=== PATIENT | female | born 1965 | race Caucasian/White ===

== ENCOUNTER 2018-07-08 12:28 | Emergency (ER) | payer BC, OTHER ==
--- OUTSIDE RECORDS SUMMARY | 2018-07-08 12:58 | XMS REPORT | Continuity of Care Document ---
:1965 External Reference #:[id number] Author Name Catracho Marino M.D. Address [address] [place] [address] Care Team Providers Name Role Phone Juice Cheng M.D. Primary Care Physician Unavailable Payers Type Date Identification Numbers Payment Provider Subscriber Policy Number: [id number] CTC Benefits Gill [employer] Number: [id number] [facility] PayID: [id number] [address] [address] Advance Directives Description No Information Available Problems Date Description Provider Status Onset: 07/08/2018 Transient visual loss Catracho Marino M.D. 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 ETOH Use Denies alcohol use Tobacco Use Start: Unknown Patient has never smoked Recreational Drug Use Denies Drug Use Smoking Status Reviewed: 07/08/18 Patient has never smoked Allergies, Adverse Reactions, Alerts Description No Known Drug Allergies Medications Description No Active Medications Immunizations Description No Information Available Vital Signs Description No Information Available Results Description No Information Available Procedures Description No Information Available Encounters Description No Information Available Plan of Treatment 07/08/2018 - Catracho Marino M.D.H53.121 Transient visual loss, right eyeComments:Smoking can increase the risk of developing or worsening any eye related disease, as well as affect your overall health. If you are a smoker, we strongly recommend that you quit.If you are not a smoker, we strongly recommend that you do not start.
[2018-07-08 13:39] LABS: ABS Basophils 0.1 10^3/ul (0-0.2); ABS Eosinophils 0.2 10^3/ul (0-0.6); ABS Lymphocytes 3.6 10^3/ul (1.0-4.8); ABS Monocytes 0.6 10^3/ul (0-0.8); ABS Nucleated RBC 0 10^3/ul; Eosinophil % 2.5 % (0-6); Hematocrit 44 % (35-47); Hemoglobin 15.3 g/dl (12.0-16.0); Lymphocyte % 42.2 % (25-47); Mean Corpuscular HGB Conc 35 g/dl (31-36); Mean Corpuscular Hemoglobin 33 pg (27-31); Mean Corpuscular Volume 94 fL (80-97); Mean Platelet Volume 7.6 fL (7.4-10.4); Nucleated Red Blood Cells % 0.1; Platelet Count 303 10^3/ul (150-450); Red Blood Count 4.71 10^6/ul (4.00-5.40); Red Cell Distribution Width 13 % (10.5-15); White Blood Count 8.6 10^3/ul (3.5-10.8)
[2018-07-08 13:52] LABS: INR 0.94 (0.77-1.02)
--- NOTE | 2018-07-08 13:54 | ED ---
Throat Pain/Nasal Congestion - HPI Summary HPI Summary: A 53 y/o female presents to the ED c/o right eye pain since the night of 2017 while watching television. She was seen by Dr. Marino at 11:[address] Marino referred the patient to the ED and wanted a brain MRI done. Dr. Marino is concerned for an ocular migraine. She states that the night of 06/2018 she had sharp pain in her right eye and double vision lasting 3-5 minutes. At 05:55 07/08/2018, 10 minutes after waking up, she had a similar episode. She had a third episode in the car driving to her appointment. She claims that during these episodes she is nauseous but she denies nausea currently. She states that she currently has a COTTON in which her "whole head hurts ". She rates her pain currently as a 2/10. She denies a Hx of migraines. - History of Current Complaint Chief Complaint: EDEyeProblem Time Seen by Provider: 07/08/18 12:52 Hx Obtained From: Patient Onset/Duration: Sudden Onset, Lasting Hours Severity: Moderate - Allergies/Home Medications Allergies/Adverse Reactions: Allergies Allergy/AdvReac Type Severity Reaction Status Date / Time No Known Allergies Allergy Verified 07/08/18 12:36 Home Medications: Home Medications NK [No Home Medications Reported] 07/08/18 [History Confirmed 07/08/18] PMH/Surg Hx/FS Hx/Imm Hx Endocrine/Hematology History: Denies: Hx Diabetes, Hx Thyroid Disease Cardiovascular History: Denies: Hx Hypertension Respiratory History: Denies: Hx Asthma, Hx Chronic Obstructive Pulmonary Disease (COPD) GI History: Denies: Hx Ulcer Infectious Disease History: No Infectious Disease History: Denies: Hx Clostridium Difficile, Hx Hepatitis, Hx Human Immunodeficiency Virus (HIV), Hx of Known/Suspected MRSA, Hx Shingles, Hx Tuberculosis, Hx Known/ Suspected VRE, Hx Known/Suspected VRSA, History Other Infectious Disease, Traveled Outside the [place] in Last 30 Days - Family History Known Family History: Negative: Cardiac Disease, Hypertension, Diabetes - Social History Alcohol Use: Rare Substance Use Type: Reports: None Smoking Status (MU): Former Smoker Type: Cigarettes Length of Time of Smoking/Using Tobacco: 20+ years Have You Smoked in the Last Year: No Review of Systems Eyes: Other - Positive: eye pain, double vision Negative: Nausea - not currently, but presents at times of episodes. Neurological: Negative - migraine Positive: Headache All Other Systems Reviewed And Are Negative: Yes Physical Exam - Summary Physical Exam Summary: Appearance: The patient is well-nourished in no acute distress and in no acute pain. Skin: The skin is warm and dry and skin color reflects adequate perfusion. HEENT: The head is normocephalic and atraumatic. The pupils are equal and reactive. The conjunctivae are clear and without drainage. Nares are patent and without drainage. Mouth reveals moist mucous membranes and the throat is without erythema and exudate. The external ears are intact. The ear canals are patent and without drainage. The tympanic membranes are intact. No tenderness or bruise in neck. Neck: The neck is supple with full range of motion and non-tender. There are no carotid bruits. There is no neck vein distension. Respiratory: Chest is non-tender. Lungs are clear to auscultation and breath sounds are symmetrical and equal. Cardiovascular: Heart is regular rate and rhythm. There is no murmur or rub auscultated. There is no peripheral edema and pulses are symmetrical and equal. No bruise, no thrills. Abdomen: The abdomen is soft and non-tender. There are normal bowel sounds heard in all four quadrants and there is no organomegaly palpated. Musculoskeletal: There is no back tenderness noted. Extremities are non-tender with full range of motion. There is good capillary refill. There is no peripheral edema or calf tenderness elicited. Neurological: Patient is alert and oriented to person, place and time. The patient has symmetrical motor strength in all four extremities. Cranial nerves are grossly intact. Deep tendon reflexes are symmetrical and equal in all four extremities. Psychiatric: The patient has an appropriate affect and does not exhibit any anxiety or depression. Triage Information Reviewed: Yes Vital Signs On Initial Exam: Initial Vitals Temp Pulse Resp BP Pulse Ox 97.5 F 57 16 151/97 100 07/08/18 12:34 18 12:34 18 12:34 07/08/18 12:34 07/08/18 12:34 Vital Signs Reviewed: Yes Diagnostics - Vital Signs Vital Signs Temp Pulse Resp BP Pulse Ox 07/08/18 12:34 97.5 F 57 16 151/97 100 - Laboratory Lab Results: Lab Results 07/08/18 Range/Units 13:27 WBC 8.6 (3.5-10.8) 10^3/ul RBC 4.71 (4.00-5.40) 10^6/ul Hgb 15.3 (12.0-16.0) g/dl Hct 44 (35-47) % MCV 94 (80-97) fL MCH 33 H (27-31) pg MCHC 35 (31-36) g/dl RDW 13 (10.5-15) % Plt Count 303 (150-450) 10^3/ul MPV 7.6 (7.4-10.4) fL Neut % (Auto) 46.9 (38-83) % Lymph % (Auto) 42.2 (25-47) % Glasscock % (Auto) 7.3 H (0-7) % Eos % (Auto) 2.5 (0-6) % Baso % (Auto) 1.1 (0-2) % Absolute Neuts (auto) 4.0 (1.5-7.7) 10^3/ul Absolute Lymphs (auto) 3.6 (1.0-4.8) 10^3/ul Absolute Monos (auto) 0.6 (0-0.8) 10^3/ul Absolute Eos (auto) 0.2 (0-0.6) 10^3/ul Absolute Basos (auto) 0.1 (0-0.2) 10^3/ul Absolute Nucleated RBC 0 10^3/ul Nucleated RBC % 0.1 Result Diagrams: 07/08/18 13:27 07/08/18 13:27 Lab Statement: Any lab studies that have been ordered have been reviewed, and results considered in the medical decision making process. - EKG 13:41 Cardiac Rate: Bradycardia - 55 bpm EKG Rhythm: Sinus Bradycardia Summary of EKG Findings: normal ST, no ectopy, no STEMI Re-Evaluation - Re-Evaluation First Eval Re-Evaluation Time: 13:05 Change: Unchanged - no: tenderness in neck, bruis, thrills, heart murmur. Comment: no tenderness or bruise in neck. No thrills or heart murmur. Second Eval Re-Evaluation Time: 16:10 Change: Unchanged Comment: Discussed with patient about seeing Dr. Caldwell in the ED. EENT Course/Dx - Course Course Of Treatment: Ms. Neal presented to the emergency department from Dr. Marino's office. She has had 3 episodes in the last 12 hours or so of seeing sparkling lights and floaters in her right eye accompanied by nausea. These episodes generally have resolved on their own after a few minutes. The latest episode left her with a headache which is global, not pounding and not associated with nausea. She does have a little bit of photophobia as she went to Dr. Marino's office and her eyes were dilated. He told her that this was not an IV problem and recommended she get an MRI scan. My physical exam was unremarkable and I contacted Dr. Caldwell for neurology. He came to the department and evaluated her and felt that she did not need an MRI scan, that these were ocular migraines. At that time she was completely asymptomatic and discharged. - Diagnoses Provider Diagnoses: Ocular migraine - Provider Notifications Discussed Care Of Patient With: Kate Caldwell Time Discussed With Above Provider: 13:10 Instructed by Provider To: MD Will See In ED - Dr. Caldwell states that he will see the patient in the ED and recommends TIA workup. At 18:25 Dr. Caldwell gave the pt a dx of ocular migraine and told her to follow up with Dr. Ponce in 3 weeks. Discharge - Sign-Out/Discharge Documenting (check all that apply): Patient Departure - DC - Discharge Plan Condition: Stable Disposition: HOME Patient Education Materials: Ocular Migraine (ED) Referrals: Juice Cheng MD [Primary Care Provider] - (2-3 days) Jeffery Ponce MD [Medical Doctor] - (3 weeks) Additional Instructions: Follow up with Dr. Ponce in 3 weeks. Return to the ED if you experience new or worsening symptoms. - Billing Disposition and Condition Condition: STABLE Disposition: Home - Attestation Statements Document Initiated by Rula: Yes Documenting Scribe: Tyron Morrison Provider For Whom Rula is Documenting (Include Credential): Spenser Adan MD Scribe Attestation: Tyron Bentley scribed for Spenser Adan MD on 07/08/18 at 2048. Scribe Documentation Reviewed: Yes Provider Attestation: The documentation as recorded by the Tyron hurley accurately reflects the service I personally performed and the decisions made by me, Spenser Adan MD
[2018-07-08 13:59] LABS: EGFR Non-African American 85.8 (>60)
[2018-07-08 14:45] LABS: Urine Appearance Clear; Urine Blood 1+ (Negative); Urine Color Yellow; Urine Ketones Negative (Negative); Urine Protein Negative (Negative); Urine Red Blood Cell Trace(0-2/hpf) (Absent); Urine Specific Gravity 1.012 (1.010-1.030); Urine Urobilinogen Negative (Negative); Urine White Blood Cell Trace(0-5/hpf) (Absent)
[2018-07-08 18:53] VITALS: BP 121/70
--- NOTE | 2018-07-08 21:29 | CONS ---
CC: Dr. Cheng; Dr. Caldwell; Dr. Marino * CONSULTATION REPORT: DATE OF CONSULT: 07/08/18 TIME OF EVALUATION: 5:05 p.m. PRIMARY CARE PROVIDER: Dr. Cheng. CONSULTING NEUROLOGIST: Dr. Caldwell. MULTIMEDIA AUTHORING SPECIALIST: Dr. Marino. REQUESTING PHYSICIAN: Dr. Spenser Adan REASON FOR CONSULTATION: Evaluation for admission. HISTORY OF PRESENT ILLNESS: Mrs. Neal is a 53-year-old overweight female who denies any significant past medical history who was referred to the emergency room by Dr. Marion due to visual changes. The patient states she was in her usual state of health last night when around 10, she started to have pain behind her right eye that was followed by double vision and then seeing right visual scotomas. She states the whole episode lasted around 5 minutes and she went to bed. This morning, around 6 in the morning, she had a similar episode as the same pain behind her right eye, double vision followed by bright spots in her visual field, so she talked to a friend that works at Dr. Marino's office and they made arrangement for an appointment this morning. Around 10 this morning while going to her appointment , she had another episode of pain, double vision, and bright visual spots in her visual field and after evaluation by Dr. Marino, she was sent to the emergency room for an MRI. As per discussion with the emergency room provider, Dr. Marino was concerned with ocular migraine. The emergency room provider discussed the case with Neurology on-call (Dr. Caldwell) and he was concerned with the possibility of a TIA and actually recommended admission for further workup. At the time of my interview, the patient states that she is feeling much better. She denies headaches, nausea, vomiting. Her pupils are still dilated, so she still has some visual difficulties, but no more diplopia or visual scotomas. She denies any prior episodes like this. She denies chest pain, palpitation, shortness of breath, diarrhea, urinary complaints. She had some nausea during the periods of diplopia, but this is also resolved. She had some photophobia after her eye exam as her pupils were dilated, but before that, she did not experience any photophobia. PAST MEDICAL HISTORY: None. MEDICATIONS: None. ALLERGIES: None. SOCIAL HISTORY: The patient was a smoker from age 15 to age 51, maximum 1 pack per day. She denies any history of alcohol or drug use. 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 Surrogate decision maker is her , Stefan Neal, phone number is [phone]. REVIEW OF SYSTEMS: A 14-point review of systems was performed and all the pertinent negative and positive findings are in the HPI. PHYSICAL EXAM: Vital Signs: Temperature 97.5, heart rate is 67, respiratory rate is 15, oxygen saturation 96% on room air, blood pressure is 115/68. General: The patient is a pleasant middle-aged lady, sitting up in the ED stretcher, in no acute distress. HEENT: Pupils are equal and dilated at this time. Cranial nerves II through XII are grossly intact. Face is symmetric. Moist mucous membranes. CVS: Normal S1, S2. Regular rate and rhythm. Chest: Breath sounds present bilaterally with no added sounds. Abdomen is obese. Bowel sounds present. Extremities: No edema. Neuro: She is alert and oriented x3. Face is symmetric. Speech is clear. Sensation is intact. Finger- to-nose is normal. Power is 5/5 in all 4 extremities. LABORATORY AND IMAGING DATA: The patient had a CBC that showed a WBC of 8.6, hemoglobin of 15.3, hematocrit of 44, platelets of 303. INR of 0.94. Chemistry showed a sodium of 140, potassium of 3.9, chloride of 105, bicarb 27, BUN of 8, creatinine of 0.7, glucose of 96. Lactic acid of 0.9. Calcium is 9.5. LFTs are normal. Triglycerides of 201, total cholesterol is 181, LDL is 88, HDL is 52.5, and TSH is 1.99. Urinalysis showed 1+ blood, positive nitrites, and squamous epithelial cells. EKG done at 1341 today shows sinus bradycardia at 55 beats per minute with no ST -T changes. There is no prior EKG to compare. ASSESSMENT AND PLAN: Mrs. Neal is a 53-year-old overweight female with no significant past medical history who presented to the emergency room after 3 episodes of right eye pain followed by diplopia and visual scotomas, 3 episodes over the last 24 hours. Neurology had recommended admission for transient ischemic attack workup. The patient is already scheduled to have MRI/MRA of the brain/head and neck tonight and the plan was for admission as observation to telemetry floor to monitor her rhythm and also to have an echocardiogram with bubble study in the morning as Neurology is concerned with the possibility of an transient ischemic attack. I did explain to the patient that we are concerned that her clinical presentation may be secondary to migraines, but the major concern at this point is that she could have "mini strokes" (transient ischemic attack). We are especially concerned with the fact that she has had 3 episodes over the past 24 hours and the idea would be to have her admitted to expedite her workup. Her ABCD2 score is 1 (blood pressure greater than 140/90 on arrival to the ED) and it is not clear that she would be able to get her diagnostic workup completed within 2 days as an outpatient, but the patient is adamant that she will not stay for admission. Her plan is to have the MRI tonight and follow up with Dr. Marino and her primary care provider as outpatient. The patient understands that she is at risk for further events and if these are vascular events, she may have permanent deficits, disability or even risk of depending on the magnitude of the event. The patient verbalized understanding of the risks, but states that she was never admitted before and she would prefer not to stay in the hospital. I spoke with the emergency room provider (Dr. Adan) and he will continue to care for the patient. If the patient changes her mind and decides to stay in the hospital for further evaluation, please do not hesitate to contact the hospitalist service as we will be available to admit her. TIME SPENT: Approximately 45 minutes was spent with patient and interview, medical records review, physical examination to complete the consultation, more than half the time was spent [id number] with the patient and coordination of care. [id number]/[facility] #: [id number] SHWETHA
--- NOTE | 2018-07-08 22:17 | CONS ---
CONSULTATION NOTE: DATE OF CONSULT: 07/08/18 - EMERGENCY DEPT CONSULTING PROVIDER: Spenser Adan MD REASON FOR CONSULT: Floaters in the right eye, intermittent right eye pain. HISTORY OF PRESENT ILLNESS: Mrs. Gill Neal is a 53-year-old right- handed female who had 3 episodes of gradual onset right retro-orbital dull pain that lasted 2-3 minutes. The patient had the first symptoms last night after watching TV for about 3 hours. The symptoms' onset was around 11 p.m. She noticed that she has this retro-orbital pain in the right eye associated with double vision that is horizontal that resolved after 2 minutes. After the resolution, she noticed slight headache with floaters that are coming to her from different direction. This also lasted for 1 to 2 minutes. The symptoms came back again at 5:30, lasted about 10 minutes and then again at 11 a.m., which also lasted for about 5 minutes. She went to see Dr. Marino, the expediter, who diagnosed her with transient visual loss and sent her to the ED for an MRI of the brain. When I discussed this with the patient, the patient denied any visual loss. She stopped smoking 2-1/2 years ago. She is a 20-pack per year smoker prior to that. The patient does have history of headaches. She has approximately 2-3 headaches a month. She never allows the headache to debilitate her and she is able to function with these headaches. However, she had multiple occasions where she needs an ibuprofen to take the edge off. She does have occasional photo or phonophobia and rarely nausea with the headaches. She was never diagnosed with migraine headaches. PAST MEDICAL HISTORY: She denied any history of hypertension, diabetes, or dyslipidemia. PAST SURGICAL HISTORY: She has never had any surgeries. MEDICATIONS: She is not on any medication. ALLERGIES: She is not allergic to any medication. FAMILY HISTORY: She has family history of migraines. Her brother developed severe headaches. 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 She denied any alcohol use. She is . REVIEW OF SYSTEMS: A 14-point review of systems was obtained and otherwise negative except for what was mentioned in the HPI. PHYSICAL EXAM: Vitals: Temperature 97.5, heart rate is 57, respiratory rate is 15, oxygen saturation 96%, blood pressure is 115/68. General: Well nourished, well developed female in no acute distress. She is resting comfortably. Head is normocephalic and atraumatic. Eyes: Conjunctivae/ corneas are clear. She has recently had a dilated funduscopic examination and her pupils are dilated and fixed. Neck is supple and symmetrical with no carotid bruits. Lungs are clear to auscultation bilaterally. Cardiovascular: Regular rate and rhythm with normal S1, S2. Extremities: Normal range of motion with no cyanosis. Skin: No skin lesions or laceration. Psych: Affect is broad and normal mood. Neurological Examination: Mental status, she is awake , alert, oriented to person, place, time, and general circumstance. Speech and language include expression, naming, repetition, and comprehension were assessed and found to be normal. Cranial nerve testing: Normal confrontation bilaterally. The pupils are dilated due to recent dilated funduscopic examination. She has normal disk margins. Normal venous pulsation. Sensation is intact in the forehead. No facial asymmetry. She is able to hear throughout the history process. Symmetrical palatal elevation. Normal strength against shoulder shrug resistance. Tongue is symmetrical and midline with no atrophy or fasciculation. Motor: No abnormal movements or pronator drift. Motor strength is 5/5 in the upper and lower extremities bilaterally. Reflexes: 2+ at the brachioradialis, biceps, triceps, patella, ankle bilaterally. Plantar flexor/flexor. Sensation is intact to light touch and pinprick throughout. Coordination: Normal [id number] and rapid alternating movement. Gait and station: Narrow-based, normal stance. Negative Romberg sign. Important to note that the patient's ABCD2 score is 0. LABORATORY DATA: WBC 8.6, hemoglobin 15.3, hematocrit is 44, platelet count 303. INR 0.94. TSH 1.99, HDL 52, LDL 88, cholesterol 181. Urinalysis is negative for pyuria. ASSESSMENT AND RECOMMENDATION: Mrs. Gill Neal is a 53-year-old fairly healthy female who had 3 episodes of right retro-orbital pain associated with floaters and headaches. The pain has resolved. Symptoms were very transient lasting for less than 10 minutes. She does have history of headaches. She has a family history of migraines. She denied any visual loss. Overall I suspect this presentation is related to ocular migraine or migraine phenomenon. She has no evidence of focal neurological deficits on examination. ABCD2 score is 0 thus I do not suspect that she has a transient ischemic attack. The patient is refusing to have a contrasted MRI. I informed her that a noncontrasted MRI will not evaluate for demyelinating disease and I do not think she needs a workup for vascular pathology. She agreed and would prefer to follow up with a neurologist as an outpatient. I will set her up with Dr. Ponce in 3-4 weeks. If her symptoms resolve and she does not have any recurrence of her symptoms, then she does not need any further evaluation. If she has more than 3-4 headaches a month, I recommend she should take daily magnesium oxide 400 mg daily. I encouraged her to use blue light blocking glasses whenever she is using her phone at nighttime. TIME SPENT: I spent a total of 60 minutes and greater than 50% was spent directly reviewing the medical chart, obtaining history, examining the patient, education and counseling, and discussing the treatment plan as mentioned above. The patient verbalized understanding and agrees with the plan. She prefers not to stay in the ER to wait for the MRI especially if it is not needed at this point. She will be discharged to home. [id number]/[facility] #: [id number] SHWETHA
--- NOTE | 2018-07-10 18:30 | ED ---
Progress - Progress Note Progress Note: Patient's preliminary urine culture reveals greater than 100,000 Escherichia coli. Patient was not discharged with antibiotics this day however she was seen subsequently for 2 additional ED visits and admitted to the hospital. She was discharged with Augmentin. Final results pending. Re-Evaluation - Re-Evaluation First Eval Re-Evaluation Time: 13:05 Change: Unchanged - no: tenderness in neck, bruis, thrills, heart murmur. Comment: no tenderness or bruise in neck. No thrills or heart murmur. Second Eval Re-Evaluation Time: 16:10 Change: Unchanged Comment: Discussed with patient about seeing Dr. Caldwell in the ED. Course/Dx - Course Course Of Treatment: Ms. Neal presented to the emergency department from Dr. Marino's office. She has had 3 episodes in the last 12 hours or so of seeing sparkling lights and floaters in her right eye accompanied by nausea. These episodes generally have resolved on their own after a few minutes. The latest episode left her with a headache which is global, not pounding and not associated with nausea. She does have a little bit of photophobia as she went to Dr. Marino's office and her eyes were dilated. He told her that this was not an IV problem and recommended she get an MRI scan. My physical exam was unremarkable and I contacted Dr. Caldwell for neurology. He came to the department and evaluated her and felt that she did not need an MRI scan, that these were ocular migraines. At that time she was completely asymptomatic and discharged. - Diagnoses Provider Diagnoses: Ocular migraine - Provider Notifications Time Discussed With Above Provider: 13:10 Instructed by Provider To: MD Will See In ED - Dr. Caldwell states that he will see the patient in the ED and recommends TIA workup. At 18:25 Dr. Caldwell gave the pt a dx of ocular migraine and told her to follow up with Dr. Ponce in 3 weeks. Discharge - Sign-Out/Discharge Documenting (check all that apply): Post-Discharge Follow Up - Discharge Plan Condition: Stable Disposition: HOME Patient Education Materials: Ocular Migraine (ED) Referrals: Jeffery Ponce MD [Medical Doctor] - (3 weeks) Juice Cheng MD [Primary Care Provider] - (2-3 days) Additional Instructions: Follow up with Dr. Ponce in 3 weeks. Return to the ED if you experience new or worsening symptoms. - Billing Disposition and Condition Condition: STABLE Disposition: Home
--- NOTE | 2018-07-11 08:06 | ED ---
Progress - Progress Note Progress Note: Patient's preliminary urine culture reveals greater than 100,000 Escherichia coli. Patient was not discharged with antibiotics this day however she was seen subsequently for 2 additional ED visits and admitted to the hospital. She was ultimately discharged with Augmentin. Final results pending. UPDATE: Final sensitivity panel reveals Augmentin is effective against organism. No change in treatment at this time. Re-Evaluation - Re-Evaluation First Eval Re-Evaluation Time: 13:05 Change: Unchanged - no: tenderness in neck, bruis, thrills, heart murmur. Comment: no tenderness or bruise in neck. No thrills or heart murmur. Second Eval Re-Evaluation Time: 16:10 Change: Unchanged Comment: Discussed with patient about seeing Dr. Caldwell in the ED. Course/Dx - Course Course Of Treatment: Ms. Neal presented to the emergency department from Dr. Marino's office. She has had 3 episodes in the last 12 hours or so of seeing sparkling lights and floaters in her right eye accompanied by nausea. These episodes generally have resolved on their own after a few minutes. The latest episode left her with a headache which is global, not pounding and not associated with nausea. She does have a little bit of photophobia as she went to Dr. Marino's office and her eyes were dilated. He told her that this was not an IV problem and recommended she get an MRI scan. My physical exam was unremarkable and I contacted Dr. Caldwell for neurology. He came to the department and evaluated her and felt that she did not need an MRI scan, that these were ocular migraines. At that time she was completely asymptomatic and discharged. - Diagnoses Provider Diagnoses: Ocular migraine - Provider Notifications Time Discussed With Above Provider: 13:10 Instructed by Provider To: Will See In ED - Dr. Caldwell states that he will see the patient in the ED and recommends TIA workup. At 18:25 Dr. Caldwell gave the pt a dx of ocular migraine and told her to follow up with Dr. Ponce in 3 weeks. Discharge - Sign-Out/Discharge Documenting (check all that apply): Post-Discharge Follow Up - Discharge Plan Condition: Stable Disposition: HOME Patient Education Materials: Ocular Migraine (ED) Referrals: Jeffery Ponce MD [Medical Doctor] - (3 weeks) Juice Cheng MD [Primary Care Provider] - (2-3 days) Additional Instructions: Follow up with Dr. Ponce in 3 weeks. Return to the ED if you experience new or worsening symptoms. - Billing Disposition and Condition Condition: STABLE Disposition: Home
== END 2018-07-08 18:54 | disposition home or self-care (01) ==
LOC: ED 12:28
DX: G43.809 Other migraine, not intractable, without status migrainosus (principal); Z87.891 Personal history of nicotine dependence; R00.1 Bradycardia, unspecified
CPT/HCPCS: 36415; 80053; 80061; 81003; 81015; 83605; 84443; 84484; 85025; 85610; 87077; 87086; 87186; 93005; 99283

== ENCOUNTER 2019-08-10 10:56 | Emergency (ER) | payer MEDICAID, OTHER ==
[2019-08-10 11:10] VITALS: BP 125/67
--- NOTE | 2019-08-10 11:15 | UC ---
Lower Extremity/Ankle HPI - HPI Summary HPI Summary: pain and tenderness left buttock/hip radiating down leg no know injury no fevers, tender to palpation, no recent travel or history of clotting disorder - History of Current Complaint Chief Complaint: UCLowerExtremity Stated Complaint: LEG PAIN Time Seen by Provider: 08/10/19 11:14 Hx Obtained From: Patient Hx Last Menstrual Period: 07/10/14 ?: No Onset/Duration: Sudden Onset, Lasting Days - 3, Still Present Pain Intensity: 6 Pain Scale Used: 0-10 Numeric Aggravating Factor(s): Standing, Ambulation Alleviating Factor(s): Nothing Able to Bear Weight: Yes - Allergies/Home Medications Allergies/Adverse Reactions: Allergies Allergy/AdvReac Type Severity Reaction Status Date / Time No Known Allergies Allergy Verified 08/10/19 11:11 PMH/Surg Hx/FS Hx/Imm Hx Previously Healthy: Yes - Surgical History Surgical History: None Surgery Procedure, Year, and Place: I/D in ED for skin infection on hip 2013 or 2014 - Family History Known Family History: Negative: Cardiac Disease, Hypertension, Diabetes - Social History Occupation: Works From/At Home Lives: With Family Alcohol Use: Rare Substance Use Type: None Smoking Status (MU): Former Smoker Type: Cigarettes Length of Time of Smoking/Using Tobacco: 20+ years Have You Smoked in the Last Year: No When Did the Patient Quit Smoking/Using Tobacco: 2012 Review of Systems All Other Systems Reviewed And Are Negative: Yes Constitutional: Positive: Negative Skin: Positive: Negative Eyes: Positive: Negative ENT: Positive: Negative Respiratory: Positive: Negative Cardiovascular: Positive: Negative Gastrointestinal: Positive: Negative Genitourinary: Positive: Negative Motor: Positive: Negative Neurovascular: Positive: Negative Musculoskeletal: Positive: Arthralgia - left hip/buttock, Myalgia Neurological: Positive: Negative Psychological: Positive: Negative Is Patient Immunocompromised?: No Physical Exam Triage Information Reviewed: Yes Appearance: Well-Appearing, No Pain Distress, Well-Nourished Vital Signs: Initial Vital Signs Temp 98.2 F 08/10/19 11:04 Pulse 68 08/10/19 11:04 Resp 18 08/10/19 11:04 BP 125/67 08/10/19 11:04 Pulse Ox 100 08/10/19 11:04 Vital Signs Reviewed: Yes Eye Exam: Normal Eyes: Positive: Conjunctiva Clear ENT Exam: Normal ENT: Positive: Normal ENT inspection, Hearing grossly normal. Negative: Trismus , Muffled voice, Hoarse voice Neck exam: Normal Neck: Positive: Supple, Nontender Respiratory Exam: Normal Respiratory: Positive: Chest non-tender, No respiratory distress, No accessory muscle use Cardiovascular Exam: Normal Cardiovascular: Positive: RRR, Pulses Normal, Brisk Capillary Refill Musculoskeletal Exam: Normal Musculoskeletal: Positive: Strength Intact, No Edema, ROM Limited @ - left hip due to pain Neurological Exam: Normal Neurological: Positive: Alert, Muscle Tone Normal Psychological Exam: Normal Skin Exam: Normal Lower Extremity Course/Dx - Course Course Of Treatment: medrol dose pack,flexeril, continue Tylenol and heat rubs follow with pcp if symptoms fail to resolve or if they worsen in any way-- - Differential Dx/Diagnosis Provider Diagnosis: Gluteal tendinitis, left hip Discharge ED - Sign-Out/Discharge Documenting (check all that apply): Patient Departure All imaging exams completed and their final reports reviewed: No Studies - Discharge Plan Condition: Stable Disposition: HOME Prescriptions: Cyclobenzaprine TAB* [Flexeril 10 MG TAB*] 10 mg PO TID PRN #15 tab PRN Reason: muscle spasm methylPREDNISolone [Medrol] 4 mg PO .SEE KINA INSTRUCTION #1 [id number] Patient Education Materials: Tendinitis (ED), Hip Pain (ED) Referrals: Juice Cheng MD [Primary Care Provider] - If Needed - Billing Disposition and Condition Condition: STABLE Disposition: Home - Attestation Statements Provider Attestation: I was available for consult. This patient was seen by the [facility]. The patient was not presented to , seen by or examined by in -Ruthy Dumont MD
== END 2019-08-10 11:36 | disposition home or self-care (01) ==
LOC: UCEAST 10:56
DX: M76.02 Gluteal tendinitis, left hip (principal); Z87.891 Personal history of nicotine dependence
CPT/HCPCS: 99212; G0463